=== PATIENT | male | born 1965 | race Caucasian/White ===

== ENCOUNTER 2017-01-23 11:04 | Inpatient (IN) | payer MEDICARE, BC ==
[~2017-01-23] VITALS: Ht 190.5 cm; Wt 130.0 kg
[~2017-01-23 11:04] MED LIST: BACITRACIN 50,000 UNIT ONE; BUPIVACAINE/PF 0.5% ONE; THROMBIN 5,000 UNIT VIAL TP ONE; VANCOMYCIN 1,000 MG ONE
[2017-01-23 11:37] VITALS: BP 142/81
[2017-01-23] MEDS ORDERED: GABA-827 PO (11:42)
[2017-01-23] MEDS ORDERED: LACTATED RINGERS 1,000 ML IV SCH (11:42)
[2017-01-23] MEDS ORDERED: MIDAZOLAM 1 MG/ML, 2ML ONE ×2 (12:26→13:43)
[2017-01-23] MEDS ORDERED: FENTANYL PF 250 MCG/5ML ONE ×2 (12:26→13:43)
[2017-01-23] MEDS ORDERED: CEFAZOLIN 1,000 MG ONE (13:43)
[2017-01-23] MEDS ORDERED: HYDROmorphone 1 MG/ML, 1ML ONE (13:43)
[2017-01-23] MEDS ORDERED: ONDANSETRON 2MG/ML, 2ML ONE (13:43)
[2017-01-23] MEDS ORDERED: PROPOFOL 10 MG/ML, 50ML ONE (13:43)
[2017-01-23] MEDS ORDERED: PROPOFOL 10 MG/ML, 20ML ONE (13:43)
[2017-01-23] MEDS ORDERED: DEXAMETHASONE 4 MG/ML, 1ML ONE (13:43)
[2017-01-23] MEDS ORDERED: SUCCINYLCHOLINE 20 MG/ML, 10ML ONE (13:43)
[2017-01-23] MEDS ORDERED: ROCURONIUM 10 MG/ML,10ML ONE (13:43)
[2017-01-23] MEDS ORDERED: EPINEPHRINE 1 MG/ML, 1ML ONE (14:33)
[2017-01-23] MEDS ORDERED: BUPIVACAINE/PF 0.5% ONE (14:33)
[2017-01-23] MEDS ORDERED: BUPIVACAINE/PF 0.25% ONE (14:33)
[2017-01-23] MEDS ORDERED: BACITRACIN 50,000 UNIT IRRIG ONE (14:51)
[2017-01-23] MEDS ORDERED: BUPIVACAINE/PF-EPI 0.5% 1:200K INFIL ONE (14:52)
[2017-01-23] MEDS ORDERED: BUPIVACAINE/PF-EPI 0.25% 1:200K INFIL ONE (14:54)
[2017-01-23] MEDS ORDERED: THROMBIN 5,000 UNIT VIAL TP ONE (14:55)
[2017-01-23] MEDS ORDERED: OXYcodone 5 MG/5 ML ORAL.SOL UDC PO PRN (15:00)
[2017-01-23] MEDS ORDERED: FENTANYL PF 100 MCG/2ML IV PRN (15:00)
[2017-01-23] MEDS ORDERED: hydrALAzine 20 MG/ML, 1ML IV PRN (15:00)
[2017-01-23] MEDS ORDERED: ACETAMINOPHEN 325 MG TABLET PO PRN (15:00)
[2017-01-23] MEDS ORDERED: HYDROmorphone 1 MG/ML, 1ML IV PRN (15:00)
[2017-01-23] MEDS ORDERED: PROMETHAZINE 25 MG/ML, 1ML IV PRN (15:00)
[2017-01-23] MEDS ORDERED: METOPROLOL 1 MG/ML, 5ML IV PRN (15:00)
[2017-01-23] MEDS ORDERED: MEPERIDINE/PF 25MG/0.5ML IVPush PRN (15:00)
[2017-01-23] MEDS ORDERED: LORazepam 2 MG/ML, 1ML IVPush PRN (15:00)
[2017-01-23] MEDS ORDERED: ALBUTEROL SULFATE 2.5 MG/3 ML NPPB PRN (15:00)
[2017-01-23] MEDS ORDERED: VANCOMYCIN 1,000 MG IM ONE (16:15)
[2017-01-23] MEDS ORDERED: HYDROmorphone 2 MG/ML, 1ML ONE (16:22)
[2017-01-23] MEDS ORDERED: HYDROmorphone PCA 30 MG/30 ML ONE (17:03)
[2017-01-23] MEDS ORDERED: FENTANYL PF 100 MCG/2ML ONE (17:05)
[2017-01-23] MEDS ORDERED: MEPERIDINE/PF 50 MG/ML ONE (17:17)
[2017-01-23] MEDS ORDERED: HYDROmorphone PCA 30 MG/30 ML IV PRN ×2 (18:00→19:00)
[2017-01-23] MEDS ORDERED: DIPHENHYDRAMINE 50 MG/ML, 1ML IM PRN (19:00)
[2017-01-23] MEDS ORDERED: BISACODYL 10 MG SUPP PR PRN (19:00)
[2017-01-23] MEDS ORDERED: OXYcodone/APAP 5/325MG TABLET PO PRN (19:00)
[2017-01-23] MEDS ORDERED: DIAZEPAM 5 MG TABLET PO PRN (19:00)
[2017-01-23] MEDS ORDERED: DIPHENHYDRAMINE 50 MG CAPSULE PO PRN (19:00)
[2017-01-23] MEDS ORDERED: MEPERIDINE/PF 100 MG/ML IM PRN (19:00)
[2017-01-23] MEDS ORDERED: ONDANSETRON 2MG/ML, 2ML IV PRN (19:00)
[2017-01-23] MEDS ORDERED: TIZANIDINE 4MG TABLET PO PRN (19:00)
[2017-01-23] MEDS ORDERED: DIPHENHYDRAMINE 50 MG/ML, 1ML IVPush PRN (19:00)
[2017-01-23] MEDS ORDERED: DIAZEPAM 5 MG/ML, 2ML IV PRN (19:00)
[2017-01-23 19:23] VITALS: BP 115/79
[2017-01-23] MEDS: GABAPENTIN 400 MG CAPSULE PO SCH (21:24)
[2017-01-23] MEDS: CEFAZOLIN PMX 1GM/50ML 50 ML IVPB SCH (21:24)
[2017-01-23] MEDS: NS + 20MEQ KCL 1,000 ML IV SCH (21:24)
[2017-01-23 23:49] VITALS: BP 140/90
[2017-01-24 03:53] VITALS: BP 111/68
[2017-01-24] MEDS: CEFAZOLIN PMX 1GM/50ML 50 ML IVPB SCH (04:54)
[2017-01-24 05:39] LABS: HEMATOCRIT 40.4 % (39.2-51.8); HEMOGLOBIN 13.6 g/dL (13.7-18.0)
[2017-01-24 05:52] LABS: BLOOD UREA NITROGEN 11 mg/dL (7-18)
[2017-01-24 07:06] VITALS: BP 122/70
[2017-01-24] MEDS: GABAPENTIN 400 MG CAPSULE PO SCH ×3 (08:27→20:48)
[2017-01-24] MEDS: SENNA/DOCUSATE TABLET PO SCH (08:27)
[2017-01-24] MEDS: HYDROcodone/APAP 5/325 TABLET PO PRN (10:54)
[2017-01-24] MEDS: NS + 20MEQ KCL 1,000 ML IV SCH ×2 (12:00→22:00)
[2017-01-24] MEDS: MAGNESIUM HYDROXIDE 8%, 30ML UDC PO PRN ×2 (12:04→20:48)
[2017-01-24 12:45] VITALS: BP 104/64
[2017-01-24 20:09] VITALS: BP 111/65
[2017-01-25 00:56] VITALS: BP 125/66
[2017-01-25] MEDS ORDERED: FLU VACC QS2017-18 (36MOS+) UP/PF 0.5 ML IM-VACC ONE (01:00)
[2017-01-25] MEDS: NS + 20MEQ KCL 1,000 ML IV SCH ×2 (06:04→18:00)
[2017-01-25 06:07] LABS: HEMATOCRIT 39.7 % (39.2-51.8); HEMOGLOBIN 13.2 g/dL (13.7-18.0); WHITE BLOOD COUNT 10.9 x10^3/uL (3.4-10)
[2017-01-25 06:16] LABS: BLOOD UREA NITROGEN 9 mg/dL (7-18)
[2017-01-25] MEDS: HYDROcodone/APAP 5/325 TABLET PO PRN ×2 (06:25→17:03)
[2017-01-25 08:53] VITALS: BP 116/73
[2017-01-25] MEDS: GABAPENTIN 400 MG CAPSULE PO SCH ×3 (09:12→20:48)
[2017-01-25] MEDS: SENNA/DOCUSATE TABLET PO SCH (09:12)
[2017-01-25 13:30] VITALS: BP 124/77
[2017-01-25 21:55] VITALS: BP 120/69
[2017-01-26 02:00] VITALS: BP 117/70
[2017-01-26] MEDS: HYDROcodone/APAP 5/325 TABLET PO PRN (04:13)
[2017-01-26] MEDS: NS + 20MEQ KCL 1,000 ML IV SCH (07:17)
[2017-01-26 07:20] VITALS: BP 104/65
[2017-01-26] MEDS ORDERED: HYDR-3240 PO (08:21)
== END 2017-01-26 09:25 | disposition home or self-care (01) | DRG 460 ==
LOC: ORIP 11:04 → 4NOR 18:25
PROVIDERS: ADMIT Neurological Surgery; ATTEND Neurological Surgery
PROC: 01NB0ZZ Release Lumbar Nerve, Open Approach (ICD-10-PCS; 2017-01-23)
PROC: 0QH004Z Insertion of Internal Fixation Device into Lumbar Vertebra, Open Approach (ICD-10-PCS; 2017-01-23)
PROC: 0QP104Z Removal of Internal Fixation Device from Sacrum, Open Approach (ICD-10-PCS; 2017-01-23)
PROC: 3E0U0GB Introduction of Recombinant Bone Morphogenetic Protein into Joints, Open Approach (ICD-10-PCS; 2017-01-23)
PROC: 0SG00AJ Fusion of Lumbar Vertebral Joint with Interbody Fusion Device, Posterior Approach, Anterior Column, Open Approach (ICD-10-PCS; principal; 2017-01-23 14:00)
DX: M48.061 Spinal stenosis, lumbar region without neurogenic claudication (principal); M19.90 Unspecified osteoarthritis, unspecified site; Z98.1 Arthrodesis status; Z79.899 Other long term (current) drug therapy; Z88.0 Allergy status to penicillin; Z72.89 Other problems related to lifestyle; Z23 Encounter for immunization
CPT/HCPCS: 36415; 72100; 80048; 85025; 86850; 86900; 90686; 95938; 95941; C1713; C1776; J0171; J0690; J1100; J1170; J2175; J2250; J2405; J2704; J3010; J3370; J3480; J3490; C1762; J0330; J7120